=== PATIENT | female | born 1995 | race Two or more races ===

== ENCOUNTER 2017-09-07 01:49 | Emergency (ER) | payer OTHER ==
[~2017-09-07] VITALS: Ht 160 cm; Wt 94.3 kg
[2017-09-07 02:00] VITALS: BP 106/73
[2017-09-07] MEDS ORDERED: PROZAC10 MG ORAL (02:03)
[2017-09-07] MEDS ORDERED: LEVOTHYROXINE75 MCG ORAL (02:03)
[2017-09-07] MEDS ORDERED: LANTUS SOL100 UNIT/1 SUBQ (02:03)
[2017-09-07] MEDS ORDERED: APIDRA100 UNIT/2 SQ (02:03)
[2017-09-07 02:25] VITALS: BP 106/73
--- NOTE | 2017-09-22 17:18 | Emergency Room Report ---
History of Present Illness General Chief Complaint: Skin Rash/Abscess Source: Patient Present Illness HPI 21-year-old female, no significant past medical history, presenting with neck piercing. Patient states that she has had the piercing in for many months, but for the last month it has been bothering her. Denies any redness, no purulent drainage, no fever or chills. Allergies: Coded Allergies: No Known Allergies (Unverified , 09/07/17) Patient History Past Medical History: see triage record Past Surgical History: none Pertinent Family History: none Last Menstrual Period: sep 03 Now: No Reviewed Nursing Documentation: PMH: Agreed, PSxH: Agreed Nursing Documentation-PMH Past Medical History: No History, Except For Hx Diabetes: Yes - DM1, HYPOTHYROIDISM Review of Systems All Other Systems: negative except mentioned in HPI Physical Exam Vital Signs Date Time Temp Pulse Resp B/P (MAP) Pulse Ox O2 Delivery O2 Flow Rate FiO2 09/07/17 01:59 97.9 103 16 106/73 97 Room Air Sp02 EP Interpretation: reviewed, normal General Appearance: normal inspection, well appearing, no apparent distress, alert, GCS 15, non-toxic Head: normocephalic, atraumatic Eyes: bilateral eye normal inspection, bilateral eye PERRL, bilateral eye EOMI ENT: normal ENT inspection, normal pharynx, normal voice, moist mucus membranes Neck: full range of motion, supple, other - piercing noted to anterior neck. no signs of infection. mildly tender. no fluctuance no erythema Respiratory: normal inspection, lungs clear, normal breath sounds, no respiratory distress, no retraction, no wheezing, speaking full sentences, chest symmetrical Cardiovascular #1: normal inspection, regular rate, rhythm, no edema, normal capillary refill Cardiovascular #2: 2+ radial (R), 2+ radial (L) Gastrointestinal: normal inspection, non tender, soft, non-distended, no guarding Musculoskeletal: normal inspection, back normal, normal range of motion, non- tender Neurologic: normal inspection, alert, oriented x3, responsive, motor strength/ tone normal, sensory intact, normal gait, speech normal Psychiatric: normal inspection, judgement/insight normal, memory normal Skin: normal inspection, normal color, no rash, warm/dry, well hydrated, normal turgor Medical Decision Making Diagnostic Impression: Primary Impression: Body piercing ER Course 21-year-old female with neck piercing DDX: Does not appear to be infected - appears to have chronic inflammatory reaction Plan: Followup with primary care doctor or outpatient surgery or dermatology if she wants it removed, because at this time since piercing appears to be embedded into the skin, there is no emergent need for removal. No signs of infection. ER course: Patient has remained stable during ED stay. Disposition: Patient is to be discharged to home. Patient is instructed to follow up with their primary care doctor or outpatient surgery for removal Strict return precautions discussed with patient such as fever, chills, worsening/severe pain, spread of rash, purulent drainage, which may indicate severe illness. Patient verbalizes understanding and agrees with plan. Please note that this Emergency Department Report was dictated using [employer] market research technology software, occasionally this can lead to erroneous entry secondary to interpretation by the dictation equipment Last Vital Signs Date Time Temp Pulse Resp B/P (MAP) Pulse Ox O2 Delivery O2 Flow Rate FiO2 09/07/17 02:25 97.9 16 106/73 97 Room Air 09/07/17 02:00 102 Disposition: HOME, SELF-CARE Condition: Stable Referrals: NOT CHOSEN IPA/MD,REFERRING Additional Instructions: You have a chronic inflammatory reaction of your piercing. Please followup with the dermatology for removal of your piercing Please return to the emergency room if you're experiencing fever, chills, rapid spread of the rash, purulent drainage, or increased pain Isiah Colindres M.D. Sep 22, 2017 17:18
== END 2017-09-07 02:30 | disposition home or self-care (01) ==
LOC: EMR 02:30
DX: R21 Rash and other nonspecific skin eruption (principal); E11.9 Type 2 diabetes mellitus without complications; L08.9 Local infection of the skin and subcutaneous tissue, unspecified
CPT/HCPCS: 99281